=== PATIENT | male | born 1945 | race Caucasian/White ===

== ENCOUNTER 2017-08-29 05:41 | Outpatient (CLI) | payer MEDICARE, BC ==
[~2017-08-29] VITALS: Ht 175.3 cm; Wt 78.9 kg
[~2017-08-29 05:41] MED LIST: ACHD5005 PO; ASP81TEC PO; ATEN25TA PO; BISO5TAB24 PO; BISO5TAB8 PO; CEPH500C PO; CLOP75TA PO; DAPS25TA2 PO; DOXY100T61 PO; HYDR-3583 PO; LNZ600T PO; LORA10TA7 PO; MELO7.5T PO; METO100T5 PO; PNT40TEC PO; SIMV20TA3 PO; SIMV40TA2 PO; WRF2T PO; WRF3T PO; Zocor
[2017-08-29] MEDS ORDERED: PANT40TA3 PO (15:03)
[2017-08-29] MEDS ORDERED: SIMV40TA4 PO (15:03)
[2017-08-29] MEDS ORDERED: ASPI-586 PO (15:03)
[2017-08-29] MEDS ORDERED: CLOP75TA28 PO (15:03)
[2017-08-29] MEDS ORDERED: BISO5TAB PO (15:03)
[2017-09-01] MEDS ORDERED: ACHD5005 PO (09:21)
== END 2017-08-29 15:17 | disposition home or self-care (01) ==
LOC: PREOP 05:41
PROVIDERS: ATTEND Surgery
DX: Z01.818 Encounter for other preprocedural examination (principal)

== ENCOUNTER 2020-11-20 13:49 | Emergency (ER) | payer MEDICARE, BC ==
[~2020-11-20] VITALS: Ht 175.3 cm; Wt 74.8 kg
[~2020-11-20 13:49] MED LIST changes: +ASPI-586 PO; +CLOP75TA28 PO; +NF-BISOP5 PO; +PANT40TA52 PO; +SIMV40TA25 PO
[2020-11-20 14:11] LABS: BASOPHILS % (AUTO) 1 % (0-10); EOSINOPHILS # (AUTO) 0.1 10^3/uL (0.0-0.3); EOSINOPHILS % (AUTO) 2 % (0-10); HEMATOCRIT 37 % (40-54); LYMPHOCYTES # (AUTO) 1.1 10^3/uL (1.0-4.0); LYMPHOCYTES % (AUTO) 22 % (12-44); MEAN CORPUSCULAR HEMOGLOBIN 34 pg (25-34); MEAN CORPUSCULAR HGB CONC 35 g/dL (32-36); MEAN CORPUSCULAR VOLUME 98 fL (80-99); MONOCYTES # (AUTO) 0.6 10^3/uL (0.0-1.0); MONOCYTES % (AUTO) 11 % (0-12); NEUTROPHILS # (AUTO) 3.3 10^3/uL (1.8-7.8); NEUTROPHILS % (AUTO) 64 % (42-75); PLATELET COUNT 164 10^3/uL (130-400); WHITE BLOOD COUNT 5.2 10^3/uL (4.3-11.0)
[2020-11-20 14:27] LABS: ALBUMIN 4.1 GM/DL (3.2-4.5)
[2020-11-20 14:28] LABS: CALCIUM 9.7 MG/DL (8.5-10.1)
[2020-11-20 14:30] LABS: TOTAL PROTEIN 7.2 GM/DL (6.4-8.2)
[2020-11-20 14:31] LABS: BILIRUBIN,TOTAL 0.8 MG/DL (0.1-1.0)
[2020-11-20 14:32] LABS: INR 1.1 (0.8-1.4); PROTHROMBIN TIME PATIENT 14.3 SEC (12.2-14.7)
[2020-11-20 14:33] LABS: CREATININE SERUM 1.19 MG/DL (0.60-1.30)
[2020-11-20 14:36] LABS: MAGNESIUM 1.9 MG/DL (1.6-2.4)
[2020-11-20 14:43] LABS: CREATINE KINASE MB 2.2 NG/ML (<6.6)
--- NOTE | 2020-11-20 14:50 | Diagnostic Imaging Report ---
INDICATION: Chest pain. EXAMINATION: Chest, 11/20/2020. COMPARISON: 10/06/2011. FINDINGS: There are sternotomy wires and mediastinal clips in place. Epicardial leads noted. Heart and pulmonary vasculature are normal. There is linear atelectasis in the left mid and lower lung. No infiltrates, effusions, or pneumothorax. There is no acute osseous abnormality. IMPRESSION: 1. Atelectasis in the left mid and lower lung; otherwise, negative chest. Dictated by: Dictated on workstation # [id number]
[2020-11-20] MEDS ORDERED: IOHEXOL 350 MG/ML 100 ML (OMNIPAQUE 350) VIAL IV ONE (15:30)
[2020-11-20] MEDS ORDERED: CATHETER FLUSH 10 ML SYR IV PRN (15:30)
[2020-11-20] MEDS ORDERED: HOLD METFORMIN - RECEIVED CONTRAST 20 ML VIAL IV SCH (15:30)
[2020-11-20] MEDS ORDERED: NS 100 ML (IVPB) BAG IV ONE (15:30)
--- NOTE | 2020-11-20 15:44 | Diagnostic Imaging Report ---
PROCEDURE: CT angiography of the chest with contrast. TECHNIQUE: Multiple contiguous axial images were obtained through the chest after uneventful bolus administration of intravenous contrast. 3D reconstructed CTA MIP acquisitions were also performed. Auto Exposure Controls were utilized during the CT exam to meet ALARA standards for radiation dose reduction. INDICATION: Chest pain. COMPARISON: None. FINDINGS: The heart size is normal. Coronary artery disease is present. There has been prior median sternotomy. There is no pulmonary embolism or acute aortic pathology. The lungs are clear throughout. No mass, nodule, or infiltrate is seen. Osseous structures are normal. IMPRESSION: Negative CT angio chest. Dictated by: Dictated on workstation # [id number]
--- NOTE | 2020-11-20 17:17 | ED Chest Pain ---
General Chief Complaint: Chest Pain Stated Complaint: CP SOB Nursing Triage Note: PT BROUGHT IN BY [facility] FROM [facility] WITH COMPLAINT OF CP. STATES HE WAS DRIVING AND PAIN STARTED. STATES HE FEELS HE CANT CATCH HIS BREATH. Source: patient, EMS History of Present Illness Date Seen by Provider: Nov 20, 2020 Time Seen by Provider: 13:47 Initial Comments PT ARRIVES VIA EMS PT C/O SHORTNESS OF BREATH AND CHEST PAIN, BEGAN AROUND NOON TODAY WHILE DRIVING HE THEN DROVE TO [facility], AND TOLD THEM HE WAS HAVING CHEST PAIN, THEN WAS BROUGHT HERE BY EMS EMS GAVE 4 BABY ASPIRIN, AND NO NITROGLYCERINE PT IS SYMPTOM-FREE ON ARRIVAL HERE PAIN WAS IN CENTER OF CHEST, AND NO RADIATION OF PAIN NO SWEATS NO SWELLING IN LEGS/FEET NO DIZZINESS OR SYNCOPE NO PALPITATIONS NO NAUSEA/VOMITING NO COUGH NO FEVER PT STATES HE HAS HAD AN HI WITH 4 VESSEL CABG AND STENTS X 2 IN THE PAST ALSO HAS HISTORY OF P.E. PT IS ON ASPIRIN AND PLAVIX, COREG, SIMVASTATIN AND PANTOPRAZOLE DENIES ANY MISSED DOSES OF MEDICATIONS PT HAS HAD BOTH COVID-19 VACCINES PCP: DR. GREGG RUBBER CALENDER HELPER: DR. RUELAS AT [facility] IN [place]--NEXT APPOINTMENT 01/03/21 Allergies and Home Medications Allergies Coded Allergies: No Known Drug Allergies (Unverified , 08/29/17) Patient Home Medication List Home Medication List Reviewed: Yes Aspirin (Aspir 81) 81 Mg Tablet., 81 MG PO DAILY, (Reported) Entered as Reported by: TOÑITO DELGADO on 08/29/17 1503 Bisoprolol Fumarate (Bisoprolol Fumarate) 5 Mg Tablet, 2.5 MG PO DAILY, (Reported) Entered as Reported by: TOÑITO DELGADO on 08/29/17 1503 Hydrocodone Bit/Acetaminophen (Lortab 5 Mg Tablet) 1 Tab Tab, 1-2 TAB PO 4-6HR PRN for PAIN Prescribed by: CARMEN BRASWELL on 09/01/17 0921 Pantoprazole Sodium (Pantoprazole Sodium) 40 Mg Tablet., 40 MG PO DAILY, (Reported) Entered as Reported by: TOÑITO DELGADO on 08/29/17 1503 Simvastatin (Simvastatin) 40 Mg Tablet, 40 MG PO HS, (Reported) Entered as Reported by: TOÑITO DELGADO on 08/29/17 1503 Review of Systems Review of Systems Constitutional: no symptoms reported EENTM: No Symptoms Reported Respiratory: See HPI, Shortness of Air Cardiovascular: See HPI, Chest Pain Gastrointestinal: No Symptoms Reported Genitourinary: No Symptoms Reported Musculoskeletal: no symptoms reported Skin: no symptoms reported Psychiatric/Neurological: No Symptoms Reported Endocrine: No Symptoms Reported Hematologic/Lymphatic: No Symptoms Reported Past Lnkkjvu-Yqityo-Phpjoy Hx Patient Social History Tobacco Use?: No Smoking Status: Never a Smoker Use of E-Cig and/or Vaping dev: No Substance use?: No Alcohol Use?: Yes Alcohol type: Beer Alcohol Frequency: Once in a while Pt feels they are or have been: No Immunizations Up To Date Tetanus Booster (TDap): Unknown PED Vaccines UTD: No First/Initial COVID19 Vaccinat: 2020 Second COVID19 Vaccination Gregg: 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: [employer] Seasonal Allergies Seasonal Allergies: Yes Past Medical History Surgery/Hospitalization HX: 4 VESSEL CABG CARDIAC CATHS--STENTS X 2 Surgeries: Yes CABG, Coronary Stent Respiratory: Yes Pulmonary Embolism Cardiac: Yes Coronary Artery Disease, Heart Attack, High Cholesterol, Hypertension Neurological: No Reproductive Disorders: No Sexually Transmitted Disease: No HIV/AIDS: No Gastrointestinal: Yes Gastroesophageal Reflux Musculoskeletal: Yes Arthritis Endocrine: No HEENT: Yes Cataract Loss of Vision: Bilateral Hearing Impairment: Denies Cancer: Yes Skin Did You Recieve Any Treatments: Yes What Type of Treatment Did You: Surgical Intervention Psychosocial: No Integumentary: Yes (SKIN CANCER) Adverse Reaction/Blood Tranf: No Physical Exam Vital Signs Vital Signs - First Documented 11/20/20 13:50 Pulse 69 Resp 17 B/P (MAP) 132/67 (88) Pulse Ox 97 O2 Delivery Room Air Capillary Refill : Less Than 3 Seconds Height, Weight, BMI Height: 5'9.00" Weight: 174lbs. 0.0oz. 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 Norm as Tested Skin: Normal Color, Warm/Dry Progress/Results/Core Measures Results/Orders Lab Results Laboratory Tests Test 11/20/20 13:55 11/20/20 17:32 Range/Units White Blood Count 5.2 4.3-11.0 10^3/uL Red Blood Count 3.81 L 4.30-5.52 10^6/uL Hemoglobin 13.0 L 13.3-17.7 g/dL Hematocrit 37 L 40-54 % Mean Corpuscular Volume 98 80-99 fL Mean Corpuscular Hemoglobin 34 25-34 pg Mean Corpuscular Hemoglobin Concent 35 32-36 g/dL Red Cell Distribution Width 12.0 10.0-14.5 % Platelet Count 164 130-400 10^3/uL Mean Platelet Volume 10.0 9.0-12.2 fL Immature Granulocyte % (Auto) 0 % Neutrophils (%) (Auto) 64 42-75 % Lymphocytes (%) (Auto) 22 12-44 % Monocytes (%) (Auto) 11 0-12 % Eosinophils (%) (Auto) 2 0-10 % Basophils (%) (Auto) 1 0-10 % Neutrophils # (Auto) 3.3 1.8-7.8 10^3/uL Lymphocytes # (Auto) 1.1 1.0-4.0 10^3/uL Monocytes # (Auto) 0.6 0.0-1.0 10^3/uL Eosinophils # (Auto) 0.1 0.0-0.3 10^3/uL Basophils # (Auto) 0.0 0.0-0.1 10^3/uL Immature Granulocyte # (Auto) 0.0 0.0-0.1 10^3/uL Prothrombin Time 14.3 12.2-14.7 SEC INR Comment 1.1 0.8-1.4 Activated Partial Thromboplast Time 31 24-35 SEC D-Dimer 1.18 H 0.00-0.49 UG/ML Sodium Level 136 135-145 MMOL/L Potassium Level 4.0 3.6-5.0 MMOL/L Chloride Level 102 98-107 MMOL/L Carbon Dioxide Level 23 21-32 MMOL/L Anion Gap 11 5-14 MMOL/L Blood Urea Nitrogen 11 7-18 MG/DL Creatinine 1.19 0.60-1.30 MG/DL Estimat Glomerular Filtration Rate 60 BUN/Creatinine Ratio 9 Glucose Level 105 70-105 MG/DL Calcium Level 9.7 8.5-10.1 MG/DL Corrected Calcium 9.6 8.5-10.1 MG/DL Magnesium Level 1.9 1.6-2.4 MG/DL Total Bilirubin 0.8 0.1-1.0 MG/DL Aspartate Amino Transf (AST/SGOT) 18 5-34 U/L Alanine Aminotransferase (ALT/SGPT) 13 0-55 U/L Alkaline Phosphatase 57 40-136 U/L Total Creatine Kinase 101 30-200 U/L Creatine Kinase MB 2.2 <6.6 NG/ML Myoglobin 134.8 H 10.0-92.0 NG/ML Troponin I < 0.028 0.029 H <0.028 NG/ML B-Type Natriuretic Peptide 154.9 H <100.0 PG/ML Total Protein 7.2 6.4-8.2 GM/DL Albumin 4.1 3.2-4.5 GM/DL Amylase Level 111 25-125 U/L Lipase 19 8-78 U/L My Orders Orders - PATRICIA YAO DO Cbc With Automated Diff (11/20/20 13:57) Magnesium (11/20/20 13:57) Chest 1 View, Ap/Pa Only (11/20/20 13:57) Ekg Tracing (11/20/20 13:57) Comprehensive Metabolic Panel (11/20/20 13:57) Myoglobin Serum (11/20/20 13:57) Protime With Inr (11/20/20 13:57) Partial Thromboplastin Time (11/20/20 13:57) O2 (11/20/20 13:57) Monitor-Rhythm Ecg Trace Only (11/20/20 13:57) Ed Iv/Invasive Line Start (11/20/20 13:57) Creatine Kinase (11/20/20 13:57) Creatine Kinase Mb (11/20/20 13:57) Lipase (11/20/20 13:57) Amylase (11/20/20 13:57) BNP (11/20/20 13:57) Fibrin Degradation Products (11/20/20 13:57) Troponin I (11/20/20 13:57) Ct Angio Chest W (11/20/20 14:52) Iohexol Injection (Omnipaque 350 Mg/Ml 1 (11/20/20 15:30) Received Contrast (Hold Metformin- Contr (11/20/20 15:30) Sodium Chloride Flush (Catheter Flush Sy (11/20/20 15:30) Ns (Ivpb) (Sodium Chloride 0.9% Ivpb Bag (11/20/20 15:30) Ekg Tracing (11/20/20 16:40) Troponin I (11/20/20 16:40) Vital Signs/I&O 11/20/20 13:50 Pulse 69 Resp 17 B/P (MAP) 132/67 (88) Pulse Ox 97 O2 Delivery Room Air Blood Pressure Mean: 88 Progress Progress Note : Progress Note NO SYMPTOMS ON ARRIVAL 1500--PT REMAINS SYMPTOM-FREE WILL DO REPEAT EKG AND TROPONIN 1800--PT REMAINS SYMPTOM-FREE, STATES "I FEEL GREAT" REPEAT EKG AND TROPONIN ARE BOTH NEGATIVE/UNCHANGED PT IS ANXIOUS TO GO HOME, OFFERED ADMIT HERE FOR OBSERVATION AND HE DECLINES Initial ECG Impression Date: Nov 20, 2020 Initial ECG Impression Time: 13:54 Initial ECG Rate: 75 Initial ECG Rhythm: Normal Sinus EKG : EKG Time: 17:35 Rate: 67 Rhythm: Normal Sinus ECG Comparisson: Unchanged Diagnostic Imaging Comments CXR--PER RADIOLOGIST REPORT AT 1452 FINDINGS: There are sternotomy wires and mediastinal clips in place. Epicardial leads noted. Heart and pulmonary vasculature are normal. There is linear atelectasis in the left mid and lower lung. No infiltrates, effusions, or pneumothorax. There is no acute osseous abnormality. IMPRESSION: 1. Atelectasis in the left mid and lower lung; otherwise, negative chest. CT CHEST ANGIOGRAM--PER RADIOLOGIST REPORT AT 1602 FINDINGS: The heart size is normal. Coronary artery disease is present. There has been prior median sternotomy. There is no pulmonary embolism or acute aortic pathology. The lungs are clear throughout. No mass, nodule, or infiltrate is seen. Osseous structures are normal. IMPRESSION: Negative CT angio chest. Reviewed: Reviewed by [place] Departure Communication (Admissions) 1803--CALLED ANA CRISTINA SEBASTIAN DR./RUBBER CALENDER HELPER DATA ANALYTICS DEVELOPER 1831--CALLED ROM[facility]OANA CRISTINA RUBBER CALENDER HELPER DATA ANALYTICS DEVELOPER 1834--SPOKE WITH DR. PATEL, RUBBER CALENDER HELPER DATA ANALYTICS DEVELOPER. [facility]O IS ON COMPLETE DIVERSION AT THIS TIME. HE ADVISED THAT PT MAY FOLLOW UP WITH DR. RUELAS NEXT WEEK, AND IF PAIN RETURNS, HE SHOULD GO TO [facility] ( OR MAY RETURN HERE, WITH LIKELIHOOD OF [facility] STILL BEING ON DIVERSION, AND UNABLE TO TRANSFER FROM HERE TO THERE) Impression Primary Impression: Chest pain Disposition: 01 HOME, SELF-CARE Condition: Improved Departure-Patient Inst. Decision time for Depature: 18:43 Referrals: NO,LOCAL PHYSICIAN (PCP/Family) Primary Care Physician Patient Instructions: Chest Pain (DC) Add. Discharge Instructions: CONTINUE YOUR REGULAR MEDICATIONS PRESCRIBED FOLLOW UP WITH DR. RUELAS NEXT WEEK FOR FURTHER CARE, CALL ON MONDAY TO SCHEDULE APPOINTMENT RETURN TO ER IF YOUR PAIN RETURNS All discharge instructions reviewed with patient and/or family. Voiced understanding. PATRICIA YAO DO Nov 20, 2020 17:17
[2020-11-20 18:57] VITALS: BP 144/69
== END 2020-11-20 18:57 | disposition home or self-care (01) ==
LOC: ER 13:50
DX: R07.9 Chest pain, unspecified (principal); I25.2 Old myocardial infarction; I10 Essential (primary) hypertension; I25.10 Atherosclerotic heart disease of native coronary artery without angina pectoris; E78.00 Pure hypercholesterolemia, unspecified; K21.9 Gastro-esophageal reflux disease without esophagitis; Z95.1 Presence of aortocoronary bypass graft; Z95.5 Presence of coronary angioplasty implant and graft; Z79.82 Long term (current) use of aspirin; Z79.899 Other long term (current) drug therapy
CPT/HCPCS: 36415; 71045; 71275; 80053; 82150; 82550; 82553; 83690; 83735; 83874; 83880; 84484; 85025; 85379; 85610; 85730; 93005; 93041

== ENCOUNTER 2022-02-28 21:04 | Emergency (ER) | payer MEDICARE, BC ==
[2022-02-28] MEDS ORDERED: LACTATED RINGERS 1,000 ML IV ONE (21:15)
[2022-02-28] MEDS ORDERED: PROMETHAZINE INJ 25 MG/ML (PHENERGAN) AMP IVP ONE (21:15)
[2022-02-28] MEDS ORDERED: PANTOPRAZOLE 40 MG (PROTONIX) VIAL IV ONE (21:30)
[2022-02-28 21:38] LABS: BASOPHILS % (AUTO) 0 % (0-10); EOSINOPHILS % (AUTO) 0 % (0-10); HEMATOCRIT 38 % (40-54); HEMOGLOBIN 13.4 g/dL (13.3-17.7); LYMPHOCYTES # (AUTO) 1.6 10^3/uL (1.0-4.0); LYMPHOCYTES % (AUTO) 15 % (12-44); MEAN CORPUSCULAR HEMOGLOBIN 34 pg (25-34); MEAN CORPUSCULAR HGB CONC 35 g/dL (32-36); MEAN CORPUSCULAR VOLUME 96 fL (80-99); MEAN PLATELET VOLUME 10.2 fL (9.0-12.2); MONOCYTES # (AUTO) 0.7 10^3/uL (0.0-1.0); MONOCYTES % (AUTO) 6 % (0-12); NEUTROPHILS # (AUTO) 8.5 10^3/uL (1.8-7.8); NEUTROPHILS % (AUTO) 78 % (42-75); PLATELET COUNT 194 10^3/uL (130-400); WHITE BLOOD COUNT 10.9 10^3/uL (4.3-11.0)
[2022-02-28 21:43] LABS: PROTHROMBIN TIME PATIENT 13.6 SEC (12.2-14.7)
[2022-02-28 21:47] LABS: ALBUMIN 4.5 GM/DL (3.2-4.5); POTASSIUM 3.8 MMOL/L (3.6-5.0)
[2022-02-28 21:48] LABS: CALCIUM 9.8 MG/DL (8.5-10.1)
[2022-02-28 21:49] LABS: TOTAL PROTEIN 7.5 GM/DL (6.4-8.2)
[2022-02-28 21:51] LABS: BILIRUBIN,TOTAL 0.8 MG/DL (0.1-1.0)
[2022-02-28 21:53] LABS: CREATININE SERUM 1.5 MG/DL (0.60-1.30)
--- NOTE | 2022-02-28 21:53 | Diagnostic Imaging Report ---
CHEST 1 VIEW, AP/PA ONLY Indication: Chest pain. Comparison: 11/20/2020 Findings: No focal airspace disease in the visualized lungs. No pleural effusion or pneumothorax. Normal cardiomediastinal silhouette. Stable sternotomy changes. Impression: 1. No acute cardiopulmonary process by portable radiography. Dictated by: Dictated on workstation # [id number]
[2022-02-28 21:54] LABS: LIPASE 22 U/L (8-78)
[2022-02-28 21:56] LABS: MAGNESIUM 1.9 MG/DL (1.6-2.4)
--- NOTE | 2022-02-28 22:02 | ED Chest Pain ---
General Chief Complaint: Chest Pain Stated Complaint: CHEST PAIN - VOMITING Nursing Triage Note: PT ARRIVAL TO ER [facility]IA [facility] FROM HOME WITH COMPLAINTS OF CHEST PAIN, VOMITING, DIZZINESS SINCE 1630. PT STATES THAT HE FELT FINE PRIOR TO THESE SYMPTOMS. PT STATES THAT THAT THE DIZZINESS STARTED AND THE OTHER SYMPTOMS FOLLOWED. PT HAS NO WEAKNESS, OR SIGNS OF CVA. PATIENT DENIES CHEST PAIN AT THIS MOMENT. 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 PT TOOK ASA AT HOME. Source: patient, EMS, old records Exam Limitations: no limitations History of Present Illness Date Seen by Provider: Feb 28, 2022 Time Seen by Provider: 21:05 Initial Comments This is 77-year-old gentleman presents to the emergency room with plaints of sudden onset of vertigo-like dizziness, nausea, vomiting, and subsequent chest discomfort that started abruptly at 1630. He has no focal neurologic deficits evident. EMS administered Zofran 8 mg in route. Patient took aspirin 162 mg prior to arrival. Chest pain resolved by the time of my assessment. He has significant history of coronary artery disease status post CABG and stents. He denies feeling ill in any way over the past couple of weeks prior to 1630 today. Dizziness is better with stationary head and with closing eyes. It is worse with opening eyes and head movement. Allergies and Home Medications Allergies Coded Allergies: No Known Drug Allergies (Unverified , 08/29/17) Patient Home Medication List Home Medication List Reviewed: Yes Aspirin (Aspir 81) 81 Mg Tablet.dr, 81 MG PO DAILY, (Reported) Entered as Reported by: TOÑITO DELGADO on 08/29/17 1503 Bisoprolol Fumarate (Bisoprolol Fumarate) 5 Mg Tablet, 2.5 MG PO DAILY, (Reported) Entered as Reported by: TOÑITO DELGADO on 08/29/17 1503 Hydrocodone Bit/Acetaminophen (Lortab 5 Mg Tablet) 1 Tab Tab, 1-2 TAB PO 4-6HR PRN for PAIN Prescribed by: CARMEN BRASWELL on 09/01/17 0921 Meclizine HCl (Meclizine HCl) 12.5 Mg Tablet, 12.5 MG PO Q6H PRN for VERTIGO Prescribed by: GODFREY TAYLOR on 03/01/22 0001 Ondansetron (Ondansetron Odt) 4 Mg Tab.rapdis, 4 MG SL Q4H PRN for NAUSEA/VOMITING Prescribed by: GODFREY TAYLOR on 03/01/22 0001 Pantoprazole Sodium (Pantoprazole Sodium) 40 Mg Tablet.dr, 40 MG PO DAILY, (Reported) Entered as Reported by: TOÑITO DELGADO on 08/29/17 1503 Simvastatin (Simvastatin) 40 Mg Tablet, 40 MG PO HS, (Reported) Entered as Reported by: TOÑITO DELGADO on 08/29/17 1503 Review of Systems Review of Systems Constitutional: no symptoms reported EENTM: No Symptoms Reported Respiratory: No Symptoms Reported Cardiovascular: See HPI Gastrointestinal: See HPI Genitourinary: No Symptoms Reported Musculoskeletal: no symptoms reported Skin: no symptoms reported Psychiatric/Neurological: See HPI Endocrine: No Symptoms Reported Hematologic/Lymphatic: No Symptoms Reported Past Gfpgzpg-Ewexgp-Utdtci Hx Patient Social History Tobacco Use?: No Use of E-Cig and/or Vaping dev: No Substance use?: No Alcohol Use?: No Pt feels they are or have been: No Immunizations Up To Date Tetanus Booster (TDap): Unknown PED Vaccines UTD: No Influenza Vaccine Up-to-Date: Yes; Up-to-Date First/Initial COVID19 Vaccinat: MARCH 2020 Second COVID19 Vaccination Gregg: Third COVID19 Vaccination Date: MARCH 2020 COVID19 Vaccine Color 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: [place] Seasonal Allergies Seasonal Allergies: Yes Past Medical History Surgery/Hospitalization HX: 4 VESSEL CABG CARDIAC CATHS--STENTS X 2 Surgeries: Yes (Excision basal cell carcinoma) Abdominal (Right inguinal hernia), CABG, Coronary Stent Respiratory: Yes Pulmonary Embolism Cardiac: Yes Coronary Artery Disease, Deep Vein Thrombosis, Heart Attack, High Cholesterol, Hypertension Neurological: No Reproductive Disorders: No Sexually Transmitted Disease: No HIV/AIDS: No Genitourinary: Yes (Erectile dysfunction) Gastrointestinal: Yes Abdominal Hernia (Inguinal), Gastroesophageal Reflux Musculoskeletal: Yes Arthritis Endocrine: No HEENT: Yes Cataract Loss of Vision: Bilateral Hearing Impairment: Denies Cancer: Yes Skin (Basal cell carcinoma) Did You Recieve Any Treatments: Yes What Type of Treatment Did You: Surgical Intervention Psychosocial: No Integumentary: Yes (SKIN CANCER) Adverse Reaction/Blood Tranf: No Physical Exam Vital Signs Vital Signs - First Documented 02/28/22 21:07 Temp 35.9 Pulse 89 Resp 18 B/P (MAP) 155/72 (99) Pulse Ox 96 O2 Delivery Room Air Capillary Refill : Less Than 3 Seconds Height, Weight, BMI Height: 5'9.00" Weight: 174lbs. 0.0oz. 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 Norm as Tested Skin: Normal Color, Warm/Dry Progress/Results/Core Measures Results/Orders Lab Results Laboratory Tests Test 02/28/22 21:08 02/28/22 22:10 02/28/22 23:48 Range/Units White Blood Count 10.9 4.3-11.0 10^3/uL Red Blood Count 4.00 L 4.30-5.52 10^6/uL Hemoglobin 13.4 13.3-17.7 g/dL Hematocrit 38 L 40-54 % Mean Corpuscular Volume 96 80-99 fL Mean Corpuscular Hemoglobin 34 25-34 pg Mean Corpuscular Hemoglobin Concent 35 32-36 g/dL Red Cell Distribution Width 11.7 10.0-14.5 % Platelet Count 194 130-400 10^3/uL Mean Platelet Volume 10.2 9.0-12.2 fL Immature Granulocyte % (Auto) 0 % Neutrophils (%) (Auto) 78 H 42-75 % Lymphocytes (%) (Auto) 15 12-44 % Monocytes (%) (Auto) 6 0-12 % Eosinophils (%) (Auto) 0 0-10 % Basophils (%) (Auto) 0 0-10 % Neutrophils # (Auto) 8.5 H 1.8-7.8 10^3/uL Lymphocytes # (Auto) 1.6 1.0-4.0 10^3/uL Monocytes # (Auto) 0.7 0.0-1.0 10^3/uL Eosinophils # (Auto) 0.0 0.0-0.3 10^3/uL Basophils # (Auto) 0.0 0.0-0.1 10^3/uL Immature Granulocyte # (Auto) 0.0 0.0-0.1 10^3/uL Prothrombin Time 13.6 12.2-14.7 SEC INR Comment 1.0 0.8-1.4 Activated Partial Thromboplast Time 30 24-35 SEC Sodium Level 135 135-145 MMOL/L Potassium Level 3.8 3.6-5.0 MMOL/L Chloride Level 102 98-107 MMOL/L Carbon Dioxide Level 20 L 21-32 MMOL/L Anion Gap 13 5-14 MMOL/L Blood Urea Nitrogen 19 H 7-18 MG/DL Creatinine 1.50 H 0.60-1.30 MG/DL Estimat Glomerular Filtration Rate 48 BUN/Creatinine Ratio 13 Glucose Level 134 H 70-105 MG/DL Calcium Level 9.8 8.5-10.1 MG/DL Corrected Calcium 9.4 8.5-10.1 MG/DL Magnesium Level 1.9 1.6-2.4 MG/DL Total Bilirubin 0.8 0.1-1.0 MG/DL Aspartate Amino Transf (AST/SGOT) 24 5-34 U/L Alanine Aminotransferase (ALT/SGPT) 18 0-55 U/L Alkaline Phosphatase 67 40-136 U/L Myoglobin 145.9 H 10.0-92.0 NG/ML Troponin I < 0.028 < 0.028 <0.028 NG/ML Total Protein 7.5 6.4-8.2 GM/DL Albumin 4.5 3.2-4.5 GM/DL Lipase 22 8-78 U/L Urine Color YELLOW Urine Clarity CLEAR Urine pH 7.0 5-9 Urine Specific [place] 1.015 L 1.016-1.022 Urine Protein TRACE H NEGATIVE Urine Glucose (UA) NEGATIVE NEGATIVE Urine Ketones 2+ H NEGATIVE Urine Nitrite NEGATIVE NEGATIVE Urine Bilirubin NEGATIVE NEGATIVE Urine Urobilinogen 0.2 < = 1.0 MG/DL Urine Leukocyte Esterase NEGATIVE NEGATIVE Urine RBC (Auto) NEGATIVE NEGATIVE Urine RBC NONE /HPF Urine WBC NONE /HPF Urine Squamous Epithelial Cells NONE /HPF Urine Renal Epithelial Cells NONE /HPF Urine Crystals NONE /LPF Urine Bacteria NEGATIVE /HPF Urine Casts NONE /LPF Urine Mucus NEGATIVE /LPF Urine Culture Indicated NO My Orders Orders - GODFREY CASTANO MD Ekg Tracing (02/28/22 21:10) Cbc With Automated Diff (02/28/22 21:13) Magnesium (02/28/22 21:13) Chest 1 View, Ap/Pa Only (02/28/22 21:13) Comprehensive Metabolic Panel (02/28/22 21:13) Myoglobin Serum (02/28/22 21:13) Protime With Inr (02/28/22 21:13) Partial Thromboplastin Time (02/28/22 21:13) O2 (02/28/22 21:13) Monitor-Rhythm Ecg Trace Only (02/28/22 21:13) Ed Iv/Invasive Line Start (02/28/22 21:13) Troponin I [place] (02/28/22 21:13) Lipase (02/28/22 21:13) Lactated Ringers (Lr 1000 Ml Iv Solution (02/28/22 21:15) Promethazine Injection (Phenergan Injec (02/28/22 21:15) Pantoprazole Injection (Protonix Injecti (02/28/22 21:30) Ua Culture If Indicated (02/28/22 21:44) Troponin I [place] (02/28/22 23:40) Medications Given in ED Current Medications Medications Dose Ordered Sig/Clarissa Route Start Time Stop Time Status Last Admin Dose Admin Lactated Ringer's 1,000 ml @ 0 mls/hr Q0M ONCE IV 02/28/22 21:15 02/28/22 21:17 DC 02/28/22 21:29 1,000 MLS/HR Pantoprazole 40 mg ONCE ONCE IV 02/28/22 21:30 02/28/22 21:31 DC 02/28/22 21:29 40 MG Promethazine HCl 12.5 mg ONCE ONCE IVP 02/28/22 21:15 02/28/22 21:17 DC 02/28/22 21:29 12.5 MG Vital Signs/I&O 02/28/22 03/01/22 21:07 00:26 Temp 35.9 Pulse 89 86 Resp 18 18 B/P (MAP) 155/72 (99) 149/72 Pulse Ox 96 98 O2 Delivery Room Air Room Air 03/01/22 00:00 Intake Total 1000 ml Balance 1000 ml Blood Pressure Mean: 99 Progress Progress Note #1: Time: 22:06 Progress Note Patient was given Zofran 8 mg in route by EMS. He was still nauseous on arrival. Phenergan 12.5 mg is being administered and a 1 L LR bolus. Protonix was also administered by IV route. Labs are relatively unremarkable. Progress Note #2: Progress Note Symptoms resolved with treatment. Patient was cheerful prior to discharge. Repeat troponin was negative. See discharge instructions for further discussion. Initial ECG Impression Date: Feb 28, 2022 Initial ECG Impression Time: 21:15 Initial ECG Rate: 87 Initial ECG Rhythm: Normal Sinus Initial ECG Intervals: Normal Initial ECG Impression: Normal Comment Normal sinus rhythm. No ST elevation or depression. No definite abnormal intervals or axis deviation. Diagnostic Imaging Diagonstic Imaging: Xray Plain Films/CT/US/NM/MRI: chest Comments Chest x-ray viewed by me and report reviewed. See report below: NAME: NASRA RODRÍGUEZ [facility] REC#: [id number] PT STATUS: REG ER : 1945 PHYSICIAN: GODFREY CASTANO MD ADMIT DATE: 02/28/22/ER Signed Date of Exam:02/28/22 CHEST 1 VIEW, AP/PA ONLY CHEST 1 VIEW, AP/PA ONLY Indication: Chest pain. Comparison: 11/20/2020 Findings: No focal airspace disease in the visualized lungs. No pleural effusion or pneumothorax. Normal cardiomediastinal silhouette. Stable sternotomy changes. Impression: 1. No acute cardiopulmonary process by portable radiography. Dictated by: Dictated on workstation # [id number] Dict: 02/28/222150 Trans: 02/28/222150 [facility] [id number] Interpreted by: ROMAN LESLIE MD Electronically signed by: ROMAN LESLIE MD 02/28/222150 Departure Impression Primary Impression: Vertigo Additional Impressions: Nausea & vomiting Qualified Codes: R11.2 - Nausea with vomiting, unspecified Chest pain Qualified Codes: R07.9 - Chest pain, unspecified Disposition: 01 HOME, SELF-CARE Condition: Improved Departure-Patient Inst. Decision time for Depature: 23:59 Referrals: NO,LOCAL PHYSICIAN (PCP/Family) Primary Care Physician Patient Instructions: Chest Pain, Vertigo ED Add. Discharge Instructions: Drink plenty of clear liquids to stay well-hydrated. Continue your home medications as previously prescribed. If you have rebounding nausea you may take Zofran as prescribed. If you have recurrent dizziness, take meclizine as prescribed after you take Zofran. Meclizine may cause drowsiness so use with caution. Do not drive or operate machinery after taking meclizine. Return to care if you have recurrent episodes of chest pain or if your dizziness symptoms are not resolved with Zofran and meclizine. Call your doctors office in the morning to schedule a follow-up appointment. All discharge instructions reviewed with patient and/or family. Voiced understanding. Scripts Meclizine HCl (Meclizine HCl) 12.5 Mg Tablet 12.5 MG PO Q6H PRN for VERTIGO, #10 TAB Prov: GODFREY CASTANO MD 03/01/22 Ondansetron (Ondansetron Odt) 4 Mg Tab.rapdis 4 MG SL Q4H PRN for NAUSEA/VOMITING, #10 TAB Prov: GODFREY CASTANO MD 03/01/22 Copy Copies To 1: NELLIE HOWELL MD FACP FAC CCDS GODFREY CASTANO MD Feb 28, 2022 22:02
[2022-02-28 22:18] LABS: BILIRUBIN,URINE NEGATIVE (NEGATIVE); CLARITY,URINE CLEAR; COLOR,URINE YELLOW; GLUCOSE, URINE (UA) NEGATIVE (NEGATIVE); KETONES,URINE 2+ (NEGATIVE); LEUKOCYTE ESTERASE ,URINE NEGATIVE (NEGATIVE); NITRITE,URINE NEGATIVE (NEGATIVE); PROTEIN,URINE TRACE (NEGATIVE)
[2022-02-28 22:34] LABS: BACTERIA,URINE NEGATIVE /HPF
[2022-03-01] MEDS ORDERED: ONDA4TAB11 SL (00:01)
[2022-03-01] MEDS ORDERED: MECL-215 PO (00:01)
[2022-03-01 00:26] VITALS: BP 149/72
== END 2022-03-01 00:27 | disposition home or self-care (01) ==
LOC: EDUNIT# 21:04 → ER 21:05
DX: R07.89 Other chest pain (principal); R42 Dizziness and giddiness; R11.2 Nausea with vomiting, unspecified; Z95.1 Presence of aortocoronary bypass graft
CPT/HCPCS: 36415; 71045; 80053; 81000; 83690; 83735; 83874; 84484; 85025; 85610; 85730; 93005; 93041

== ENCOUNTER → 2022-03-22 | Outpatient (CLI) | payer MEDICARE, BC ==
[~2022-03-22] MED LIST changes: +MECL-215 PO; +ONDA4TAB11 SL
== END ==
LOC: CARD 10:52
PROVIDERS: ATTEND Internal Medicine Cardiovascular Disease
DX: I35.1 Nonrheumatic aortic (valve) insufficiency (principal); I51.7 Cardiomegaly
CPT/HCPCS: 93306